=== PATIENT | male | born 1985 | race Caucasian/White ===

== ENCOUNTER 2017-05-17 11:09 | Emergency (ER) | payer MEDICAID, SELFPAY ==
[2017-05-17 11:21] VITALS: BP 125/77; PULSE 85; RESP 20; TEMP 37.3; O2SAT 97; BMI 31.6
--- NOTE | 2017-05-17 11:24 | XR_ITS ---
XR chest 2V HISTORY: ITS.REASON: COUGH ORDERING PHYSICIAN: Dyana Magana PATIENT AGE: 31 years COMPARISON: None available FINDINGS: The cardiomediastinal silhouette and pulmonary vascularity are within normal limits. The lungs are clear without infiltrates, suspicious nodules, or pleural effusions. No acute bony abnormalities. IMPRESSION: Negative chest, no acute finding
--- NOTE | 2017-05-17 11:52 | HMH.EDUTC ---
[facility] [place] Clinical Impression: Influenza Upper respiratory infection Qualifiers: URI type: unspecified URI Qualified Code(s): J06.9 - Acute upper respiratory infection, unspecified Disposition: Home, Self-Care Condition on Discharge: Good Instructions: Influenza, Sinusitis, DI for Sinusitis Additional Instructions: ? Start Tamiflu today if you are going to take it. Discussed risk and possible benefits. ?? Lots of rest ? Increase Fluids water, Gatorade, powerade, pedialyte,if infant/toddler/child ? Alternate Tylenol and / or ibuprofen as discussed for fever, aches, chills x 24 hours without medication for symptoms ? Follow up IMMEDIATELY for new or worsening Symptoms OR no noticeable improvement over the next 48-72 hours, 911 for difficulty or breathing ? You or your child area contagious until no fever, aches, chills for 24 hours with medication for symptoms Prescriptions: Oseltamivir Phosphate [Tamiflu 75mg Capsule] 75 mg PO BID #10 capsule Promethazine/Dextromethorphan [Promethazine-Dm Syrup] 5 ml PO Q4H PRN #200 syrup PRN Reason: Cough Referrals: Brad Chavira MD [Primary Care Provider] - Forms: Work/School Release Time of Disposition: 12:09 Medical Decision Making Vital Signs: 05/17/17 11:21 Temperature 99.2 F Temperature Source Oral Pulse Rate [Left Brachial] 85 Respiratory Rate 20 Blood Pressure [Left Arm] 125/77 Blood Pressure Mean [Left Arm] 93 Blood Pressure Source [Left Arm] Automatic Cuff Blood Pressure Position [Left Arm] Sitting 02 Sat by Pulse Oximetry 97 Oxygen Delivery Method Room Air - Lab Data Lab Results 05/17/17 11:58: Influenza Type A Ag Positive A, Influenza Type B Ag Negative - Greg Inquiry Pt receiving controlled substance: No Greg was queried for this patient: No - Reevaluation(s) Time: 12:02 (Although patient flu + patient has been having sinus pain and pressure now for about 3 weeks and has taken several over the counter medications to treat with no success Still having thick yellowish drainage therefore treatment with Rocephin injection was done for infection and treatment for the flu with Tamiflu) [facility] [place]PI - General Stated complaint: cough fever drainage body aches Mode of Arrival: Ambulatory Source of Information: Patient Limitations: No Limitations Description of Symptoms (Recalled from Triage Doc. by RN): C/O HEAD AND CHEST CONGESTION, COUGH, FEVER, CHILLS, BROWN EXPECTORANT X3 WEEKS HEENT Symptoms (Recalled from RN notes): Yes (HEAD CONGESTION) Resp Symptoms (Recalled from RN notes): Yes (COUGH, CHEST CONGESTION, BROWN EXPECTORANT) Skin Symptoms (Recalled from RN notes): No MS Symptoms (Recalled from RN notes): No Functional Status (Recalled from RN notes): N/A - History of Present Illness Provider Complaint: Patient state that she has been having cough and congestion along with fever on and off now for several weeks States that he is also having sinus pain and pressure along with drainage State that his girlfriend had flu a couple weeks ago and not sure if he may or may not have that just knows that he has taken several over the counter Medications but nothing has helped - Related Data Previous Rx's Medication Instructions Recorded Oseltamivir Phosphate [Tamiflu 75 mg PO BID #10 cap 05/17/17 75mg Capsule] Promethazine/Dextromethorphan 5 ml PO Q4H PRN #200 syrup 05/17/17 [Promethazine-Dm Syrup] Allergies Allergy/AdvReac Type Severity Reaction Status Date / Time No Known Allergies Allergy Unverified 04/25/17 14:47 - Worker's Comp Is this a Worker's Comp case?: No [facility] History I have reviewed the patient's past medical history: Yes - *Social History Smoking Status: Never smoker Alcohol Intake: current Alcohol Intake Frequency:: holidays/special occasions only Substance Use Type: unknown - Psychiatric History Expresses thoughts of harming self/others: None Suicide Plan Description: No Plan ROS Obtained: Yes
--- NOTE | 2017-05-17 11:56 | ED_ITS ---
[facility] [place] Dis[place] Clinical Impression: Influenza Upper respiratory infection Qualifiers: URI type: unspecified URI Qualified Code(s): J06.9 - Acute upper respiratory infection, unspecified Disposition: Home, Self-Care Condition on Discharge: Good Instructions: Influenza, Sinusitis, DI for Sinusitis Additional Instructions: ? Start Tamiflu today if you are going to take it. Discussed risk and possible benefits. ?? Lots of rest ? Increase Fluids water, Gatorade, powerade, pedialyte,if infant/toddler/child ? Alternate Tylenol and / or ibuprofen as discussed for fever, aches, chills x 24 hours without medication for symptoms ? Follow up IMMEDIATELY for new or worsening Symptoms OR no noticeable improvement over the next 48-72 hours, 911 for difficulty or breathing ? You or your child area contagious until no fever, aches, chills for 24 hours with medication for symptoms Prescriptions: Oseltamivir Phosphate [Tamiflu 75mg Capsule] 75 mg PO BID #10 capsule Promethazine/Dextromethorphan [Promethazine-Dm Syrup] 5 ml PO Q4H PRN #200 syrup PRN Reason: Cough Referrals: Brad Chavira MD [Primary Care Provider] - Forms: Work/School Release Time of Disposition: 12:09 Medical Decision Making Vital Signs: 05/17/17 11:21 Temperature 99.2 F Temperature Source Oral Pulse Rate [Left Brachial] 85 Respiratory Rate 20 Blood Pressure [Left Arm] 125/77 Blood Pressure Mean [Left Arm] 93 Blood Pressure Source [Left Arm] Automatic Cuff Blood Pressure Position [Left Arm] Sitting 02 Sat by Pulse Oximetry 97 Oxygen Delivery Method Room Air - Lab Data Lab Results 05/17/17 11:58: Influenza Type A Ag Positive A, Influenza Type B Ag Negative - Greg Inquiry Pt receiving controlled substance: No Greg was queried for this patient: No - Reevaluation(s) Time: 12:02 (Although patient flu + patient has been having sinus pain and pressure now for about 3 weeks and has taken several over the counter medications to treat with no success Still having thick yellowish drainage therefore treatment with Rocephin injection was done for infection and treatment for the flu with Tamiflu) [facility] [place] HPI - General Stated complaint: cough fever drainage body aches Mode of Arrival: Ambulatory Source of Information: Patient Limitations: No Limitations Description of Symptoms (Recalled from Triage Doc. by RN): C/O HEAD AND CHEST CONGESTION, COUGH, FEVER, CHILLS, BROWN EXPECTORANT X3 WEEKS HEENT Symptoms (Recalled from RN notes): Yes (HEAD CONGESTION) Resp Symptoms (Recalled from RN notes): Yes (COUGH, CHEST CONGESTION, BROWN EXPECTORANT) Skin Symptoms (Recalled from RN notes): No MS Symptoms (Recalled from RN notes): No Functional Status (Recalled from RN notes): N/A - History of Present Illness Provider Complaint: Patient state that she has been having cough and congestion along with fever on and off now for several weeks States that he is also having sinus pain and pressure along with drainage State that his girlfriend had flu a couple weeks ago and not sure if he may or may not have that just knows that he has taken several over the counter Medications but nothing has helped - Related Data Previous Rx's Medication Instructions Recorded Oseltamivir Phosphate [Tamiflu 75 mg PO BID #10 cap 05/17/17 75mg Capsule] Promethazine/Dextromethorphan 5 ml PO Q4H PRN #200 syrup 05/17/17 [Promethazine-Dm Syrup]
[2017-05-17 11:59] LABS: UTC Influenza A Antigen Positive (Negative); UTC Influenza B Antigen Negative (Negative)
== END 2017-05-17 12:24 | disposition home or self-care (01) ==
PROVIDERS: Emergency Provider Nurse Practitioner; PCP Internal Medicine Adolescent Medicine
DX: J10.1 Influenza due to other identified influenza virus with other respiratory manifestations (principal)
CPT/HCPCS: 71046; 87804; 96372; 99202

== ENCOUNTER 2023-06-05 16:01 | Emergency (ER) | payer OTHER, SELFPAY ==
[2023-06-05 16:40] VITALS: BP 133/80; PULSE 64; RESP 18; TEMP 37.1; O2SAT 99; BMI 24.5
--- NOTE | 2023-06-05 16:57 | ED_ITS ---
Discharge Plan Disposition Patient Disposition: Home, Self-Care Condition: Good Prescriptions Prescriptions: New ondansetron 4 mg tablet,disintegrating 4 mg PO Q8H PRN (Reason: nausea and vomiting) Qty: 12 0RF dextromethorphan polistirex [Delsym 12 hour] 30 mg/5 mL suspension,extended rel 12 hr 10 ml PO Q12H PRN (Reason: cough) Qty: 89 0RF No Action buprenorphine-naloxone 1 EACH tablet, sublingual 3 each SL DAILY methylprednisolone 4 MG tablets,dose pack 4 mg PO DIRECTED 6 Days Qty: 21 0RF xzdlvmdjxiofhsy-vlzpulbgn-LE 118 ML syrup 5 ml PO Q6HP PRN (Reason: Cough) Qty: 240 0RF amoxicillin-pot clavulanate 1 EACH tablet 1 tab PO Q12H 10 Days Qty: 20 0RF Referrals Follow up/Referrals: Provider,Referral, MD [Primary Care Provider] - See instructions Activity Restrictions/Add. Instructions Additional Instructions/Restrictions: * Too late to start Tamiflu. Most effective when started within 48 hours of symptoms onset * Lots of rest * Increase Fluids water, Gatorade, powerade, pedialyte,if infant/toddler/child * Alternate Tylenol and / or ibuprofen as discussed for fever, aches, chills Follow up IMMEDIATELY with your family doctor for new or worsening Symptoms OR no noticeable improvement over the next 48-72 hours, 911 for difficulty or breathing * You or your child area contagious until no fever, aches, chills for 24 hours with medication for symptoms * Help Prevent the spread of influenza: * ?Wash your hands often. Use soap and water. Wash your hands after you use the bathroom, change a child's diapers, or sneeze. Wash your hands before you prepare or eat food. Use gel hand cleanser that has 60% alcohol, when soap and water are not available. Do not touch your eyes, nose, or mouth unless you have washed your hands first. * Cover your mouth when you sneeze or cough. Cough into a tissue or the bend of your arm. If you use a tissue, throw it away immediately and wash your hands. * Clean shared items with a germ-killing white work cleaner. Clean table surfaces, doorknobs, and light switches. Do not share towels, silverware, and dishes with people who are sick. Wash bed sheets, towels, silverware, and dishes with soap and water. * Wear a mask over your mouth and nose if you are sick. The face mask may help protect others from becoming infected with the flu. Wear the mask when in common areas of your home or if you seek care with a healthcare provider. * Stay away from others if you are sick. Stay at home until 24 hours after your fever and symptoms are gone. Clinical Impressions Clinical Impression: Influenza Stand Alone Forms Stand Alone Forms: Work/School Release Instructions Patient Instructions: DI for Influenza -- Adult, Influenza Discharge ED Provider: Dyana Magana [facility] [place] General Stated complaint: cough ba fever 102.9 diarrhea vomiting flu expos Mode of Arrival: Ambulatory Source of Information: Patient Limitations: No Limitations Time Seen by Provider: 06/05/23 16:58 Description of Symptoms (Recalled from Triage Doc. by RN): PATIENT C/O BODY ACHES, CHILLS, AND VOMITING X 3 DAYS. RECENTLY EXPOSED TO FLU HEENT Symptoms (Recalled from RN notes): No Resp Symptoms (Recalled from RN notes): No Skin Symptoms (Recalled from RN notes): No MS Symptoms (Recalled from RN notes): No Functional Status (Recalled from RN notes): WNL History of Present Illness Provider Complaint: Patient states that he started feeling bad on Monday but symptoms got worse on Monday States someone in his house has the flu right now and then he started having symptoms States that he has been having body aches, chills, N/V and feeling achy all over States today he was still feeling bad so he came in to get checked Related Data Home Medications Medication Instructions Recorded Confirmed buprenorphine 8 mg-naloxone 2 mg 3 each SL DAILY SUBSTANCE ABUSE 03/12/19 03/12/19 sublingual tablet Previous Rx's Medication Instructions Recorded amoxicillin 875 mg-potassium 1 tab PO Q12H 10 days #20 tabs 03/12/19 clavulanate 125 mg tablet mztofnpggnorpot-cfdkfrfddbvwdst-XC 5 ml PO Q6HP PRN Cough ##240 03/12/19 2 mg-30 mg-10 mg/5 mL oral syrup methylprednisolone 4 mg tablets in 4 mg PO DIRECTED 6 days ##21 03/12/19 a dose pack dextromethorphan polistirex 30 10 ml PO Q12H PRN cough #89 mL 06/05/23 mg/5 mL oral susp ext.release 12hr (Delsym 12 hour) ondansetron 4 mg disintegrating 4 mg PO Q8H PRN nausea and 06/05/23 tablet vomiting #12 tabs Allergies Allergy/AdvReac Type Severity Reaction Status Date / Time No Known Allergies Allergy Verified 06/19/18 15:21 Worker's Comp Is this a Worker's Comp case?: No [facility] Disclaimer: The information contained in this section may have been updated after the patient was seen, as this information can be updated by other users. Medical History (Updated 06/05/23 @ 17:03 by Dyana Magana APRN) No significant past medical history Social History Smoking Status: Never smoker alcohol intake: never substance use type: unknown current occupational status: employed Travel in the last 8 weeks: None ROS Obtained: Yes All systems reviewed & no additional complaints except as documented and Yes Systems reviewed as appropriate & no additional complaints except as documented Constitutional Constitutional: Reports system reviewed and no additional complaints, except as documented, Reports as per HPI, Reports body ache, Reports chills, Reports fever(s) and Reports headache(s) ENT Ears, Nose, Mouth, and Throat: Reports system reviewed and no additional complaints, except as documented, Reports as per HPI and Reports headache(s) Cardiovascular Cardiovascular: Reports system reviewed and no additional complaints, except as documented and Reports as per HPI Respiratory Respiratory: Reports system reviewed and no additional complaints, except as documented and Reports as per HPI Gastrointestinal Gastrointestingal: Reports system reviewed and no additional complaints, except as documented, as per HPI, nausea and vomiting Neurologic Neurologic: Reports headache(s) Physical Exam General General appearance: alert and in no apparent distress ENT ENT exam: Present mucous membranes moist Expanded ENT Exam Nose exam: Absent sinus tenderness Respiratory Respiratory exam: Present normal lung sounds bilaterally; Absent respiratory distress or wheezes Cardiovascular Cardiovascular exam: Present regular rate, normal rhythm and normal heart sounds Abdominal Exam Abdominal exam: Present soft and normal bowel sounds; Absent distention or tenderness Neurological Exam Neurological exam: Present alert, oriented X3 and normal gait Medical Decision Making Greg Inquiry Pt receiving controlled substance: No Greg was queried for this patient: No Vital Signs: 06/05/23 16:40 Temperature 98.7 F Temperature Source Oral Pulse Rate [Right Brachial] 64 Respiratory Rate 18 Blood Pressure [Right Arm] 133/80 Blood Pressure Mean [Right Arm] 97 Blood Pressure Source [Right Arm] Automatic Cuff Blood Pressure Position [Right Arm] Sitting 02 Sat by Pulse Oximetry 99 Oxygen Delivery Method Room Air Lab Data Lab results reviewed: Yes I reviewed the patient's lab results.
[2023-06-05 16:59] LABS: UTC Influenza A Antigen Positive (Negative); UTC Influenza B Antigen Negative (Negative)
[2023-06-05 17:01] VITALS: BP 133/80; PULSE 64; RESP 18; TEMP 37.1; O2SAT 99
== END 2023-06-05 17:10 | disposition home or self-care (01) ==
PROVIDERS: Emergency Provider Nurse Practitioner
DX: J10.1 Influenza due to other identified influenza virus with other respiratory manifestations (principal); R11.2 Nausea with vomiting, unspecified; R51.9 Headache, unspecified; R50.9 Fever, unspecified; R05.9 Cough, unspecified; M79.18 Myalgia, other site
CPT/HCPCS: 87804; 99204; 99212; G0463

== ENCOUNTER 2023-06-08 19:28 | Emergency (ER) | payer OTHER, SELFPAY ==
[2023-06-08 19:30] VITALS: BP 139/100; PULSE 56; RESP 16; TEMP 36.7; O2SAT 97; BMI 29.2
--- NOTE | 2023-06-08 19:43 | HMH.EDGENADL ---
Discharge Plan Disposition Patient Disposition: Home, Self-Care Prescriptions Prescriptions: New ondansetron 8 mg tablet,disintegrating 8 mg PO Q8H PRN (Reason: nausea and vomiting) 5 Days Qty: 10 0RF No Action buprenorphine-naloxone 1 EACH tablet, sublingual 3 each SL DAILY methylprednisolone 4 MG tablets,dose pack 4 mg PO DIRECTED 6 Days Qty: 21 0RF vvwhnalqbopvjtu-xdjrvevur-ZK 118 ML syrup 5 ml PO Q6HP PRN (Reason: Cough) Qty: 240 0RF amoxicillin-pot clavulanate 1 EACH tablet 1 tab PO Q12H 10 Days Qty: 20 0RF ondansetron 4 mg tablet,disintegrating 4 mg PO Q8H PRN (Reason: nausea and vomiting) Qty: 12 0RF dextromethorphan polistirex [Delsym 12 hour] 30 mg/5 mL suspension,extended rel 12 hr 10 ml PO Q12H PRN (Reason: cough) Qty: 89 0RF Referrals Follow up/Referrals: Provider,Referral, MD [Primary Care Provider] - See instructions Clinical Impressions Clinical Impression: Influenza, COVID-19 Instructions Patient Instructions: DI for Diarrhea and Traveler's Diarrhea -- Adult, DI for Diarrhea and Traveler's Diarrhea -- Child, DI for Nausea -- Adult, DI for Nausea -- Child Discharge ED Provider: Rodney Grove [facility] Adult HPI General Chief complaint: Nausea/Vomiting/Diarrhea Stated complaint: flu A -fever, body aches Time Seen by Provider: 06/08/23 19:34 Mode of Arrival: Ambulatory Source of Information: Patient Limitations: No Limitations Description of Symptoms (Recalled from ER Triage Doc. by RN): pt states tested for flu on monday. pt c/o vomitting and diarrhea History of Present Illness HPI narrative: 37-year-old male with recent diagnosis of COVID and flu presenting with multiple complaints. Patient is been vomiting and having diarrhea for the past few days. Has been on Zofran at home, ran out of that today. Also been taking Decadron daily. Has not been taking Tamiflu states he has been unable to keep anything down secondary to vomiting and loss of appetite. Nonbloody, nonbilious vomiting and nonbloody diarrhea. Related Data Home Medications Medication Instructions Recorded Confirmed buprenorphine 8 mg-naloxone 2 mg 3 each SL DAILY SUBSTANCE ABUSE 03/12/19 03/12/19 sublingual tablet Previous Rx's Medication Instructions Recorded amoxicillin 875 mg-potassium 1 tab PO Q12H 10 days #20 tabs 03/12/19 clavulanate 125 mg tablet epstzokvqhnyhon-liqdhgwhfngaksf-OY 5 ml PO Q6HP PRN Cough ##240 03/12/19 2 mg-30 mg-10 mg/5 mL oral syrup methylprednisolone 4 mg tablets in 4 mg PO DIRECTED 6 days ##21 03/12/19 a dose pack dextromethorphan polistirex 30 10 ml PO Q12H PRN cough #89 mL 06/05/23 mg/5 mL oral susp ext.release 12hr (Delsym 12 hour) ondansetron 4 mg disintegrating 4 mg PO Q8H PRN nausea and 06/05/23 tablet vomiting #12 tabs ondansetron 8 mg disintegrating 8 mg PO Q8H PRN nausea and 06/08/23 tablet vomiting 5 days #10 tabs Allergies Allergy/AdvReac Type Severity Reaction Status Date / Time No Known Allergies Allergy Verified 06/19/18 15:21 [facility] Disclaimer: The information contained in this section may have been updated after the patient was seen, as this information can be updated by other users. Medical History (Updated 06/08/23 @ 21:53 by Rodney Grove MD) No significant past medical history Social History Smoking Status: Heavy tobacco smoker tobacco type: smokeless tobacco alcohol intake: never substance use type: unknown current occupational status: employed Travel in the last 8 weeks: None ROS Obtained: Yes All systems reviewed & no additional complaints except as documented Physical Exam General General appearance: alert and in no apparent distress Head Head exam: atraumatic and normocephalic Eye Eye exam: Present normal appearance, PERRL and EOMI ENT ENT exam: Present mucous membranes moist Neck Neck exam: Present normal inspection, full ROM and trachea midline Respiratory Respiratory exam: Absent respiratory distress, wheezes, stridor, accessory muscle use or prolonged expiratory phase Cardiovascular Cardiovascular exam: Present normal rhythm Abdominal Exam Abdominal exam: Present soft; Absent distention, tenderness, guarding, rebound or rigidity Extremities Exam Extremities exam: Absent edema Neurological Exam Neurological exam: Present alert, oriented X3, CN II-XII intact and normal gait; Absent motor sensory deficit Skin Skin exam: Present warm and dry; Absent diaphoresis or erythema Medical Decision Making Medical Records Medical records reviewed: Yes I reviewed the patient's medical records. Greg Inquiry Pt receiving controlled substance: No Greg was queried for this patient: No Vital Signs: 06/08/23 19:30 Temperature 98.1 F Temperature Source Oral Pulse Rate [Right] 56 L Respiratory Rate 16 Blood Pressure [Right Arm] 139/100 H Blood Pressure Mean [Right Arm] 113 02 Sat by Pulse Oximetry 97 Orders (Tests/Meds): ED MEDICATIONS Discontinued Medications Generic Name Dose Route Start Last Admin Trade Name Freq PRN Reason Stop Dose Admin Diphenhydramine HCl 25 mg 06/08/23 19:42 06/08/23 20:37 Diphenhydramine 50mg/Ml Vial IV 06/08/23 19:43 25 mg ONCE ONE Administration Lactated Ringer's 1,000 mls @ 999 mls/hr 06/08/23 19:42 06/08/23 20:37 Lactated Ringer's 1000 Ml Bag IV 06/08/23 20:42 999 mls/hr .Q1H1M ONE Administration Ondansetron HCl 4 mg 06/08/23 19:42 06/08/23 20:37 Ondansetron 4mg/2ml Vial IV 06/08/23 19:43 4 mg ONCE ONE Administration Medical Decision Narrative: 37-year-old male presenting with viral symptoms after being diagnosed with COVID and flu. History was obtained via conversation with patient. On arrival, patient hemodynamically stable, alert, oriented x4, appropriate, GCS 15, moving all extremities spontaneously, pupils equal and reactive to light. Full physical exam performed and significant for very well-appearing male no acute distress. Saturating appropriately, nontachycardic, normotensive. Appears very well. Mucous membranes are not dry. Differential includes viral syndrome, dehydration. Patient was given fluids, Zofran, Decadron IV for symptomatic management and correction of underlying abnormalities. Workup considered, but patient very well-appearing and has known underlying etiology. On reevaluation, patient feeling better and ready to go. Because patient at baseline without signs or symptoms of clinical decompensation, deemed appropriate for discharge. Results were relayed to patient who voiced understanding and were agreeable to outpatient management and follow up. At the time of discharge the patient was hemodynamically stable, tolerating PO, and mobilizing appropriately. Critical Care Critical Care Time Critical Care Time: No
[2023-06-08] MEDS: ONDANSETRON 4MG/2ML VIAL 4 MG IV (20:37)
[2023-06-08] MEDS: LACTATED RINGERS 1000ML 1,000 ML 999 ML IV (20:37)
[2023-06-08] MEDS: diphenhydrAMINE 50MG/ML VIAL 25 MG IV (20:37)
--- NOTE | 2023-06-08 20:42 | PC.NURSE ---
contacted the boom conveyor operator to page social contact worker OB to Dr. Oates ext [phone]
[2023-06-08 21:58] VITALS: BP 139/69; PULSE 85; RESP 17; TEMP 36.8; O2SAT 97
== END 2023-06-08 21:58 | disposition home or self-care (01) ==
PROVIDERS: Emergency Provider Emergency Medicine
DX: U07.1 COVID-19 (principal); J10.2 Influenza due to other identified influenza virus with gastrointestinal manifestations; R11.2 Nausea with vomiting, unspecified; R19.7 Diarrhea, unspecified; F17.290 Nicotine dependence, other tobacco product, uncomplicated
CPT/HCPCS: 96361; 96374; 96375; 99284; J2405

== ENCOUNTER 2024-01-19 10:19 | Outpatient (CLI) | payer OTHER, SELFPAY ==
[2024-01-19 10:59] LABS: Basophils % 0.7 % (0.1-2.0); Eosinophils # 0.1 K/mm3 (0.0-0.4); Eosinophils % 2.2 % (0.1-12.0); Hematocrit 39.3 % (42.0-52.0); Hemoglobin 12.4 g/dL (14.1-18.0); Lymphocytes # 1.5 K/mm3 (0.7-4.5); Lymphocytes % 39.1 % (10-50); Mean Corpuscular HGB Conc 31.6 g/dL (31.8-35.4); Mean Corpuscular Hemoglobin 27.8 pg (27.0-31.2); Mean Corpuscular Volume 87.9 fl (80-94); Mean Platelet Volume 8.1 fl (7.4-10.4); Monocytes # 0.3 K/mm3 (0.1-1.0); Monocytes % 6.4 % (1.7-9.3); Neutrophils # 2.1 K/mm3 (1.8-7.8); Neutrophils % 51.7 % (37.0-80.0); Platelet Count 248 K/mm3 (142-424); Red Blood Count 4.47 M/mm3 (4.60-6.20)
[2024-01-19 11:07] LABS: Barbiturates Screen,Urine Negative ng/ml (<200); Benzodiazepines Screen,Urine Negative ng/ml (<200)
[2024-01-19 11:08] LABS: Amphetamine/Metha Screen,Urine Negative ng/ml (<1000)
[2024-01-19 11:09] LABS: Cannabinoid Screen,Urine Negative ng/ml (<50); Cocaine Screen,Urine Negative ng/ml (<300)
[2024-01-19 11:10] LABS: Methadone Screen,Urine Negative ng/ml (<300)
[2024-01-19 11:11] LABS: Opiate Screen,Urine Negative ng/ml (<300); Phencyclidine Screen,Urine Negative ng/ml (<25)
[2024-01-19 11:45] LABS: Alanine Aminotransferase 63 U/L (12-78); Albumin Level 3.8 g/dl (3.5-5.0); Albumin/Globulin Ratio 1.2 (1.1-1.8); Alkaline Phosphatase 68 U/L (38-126); Aspartate Amino Transferase 49 U/L (17-59); Bilirubin,Total 0.4 mg/dl (0.2-1.3); Blood Urea Nitrogen 21 mg/dl (9-20); Calcium 9.3 mg/dl (8.4-10.2); Carbon Dioxide 33 mmol/L (22.0-30.0); Chloride 104 mmol/L (98-107); Estimated Glomerular Filt Rate 68 ml/min (>60); GFR (African American) 82 ML/MIN (>60); Globulin 3.1 g/dL (1.3-3.2); Glucose 93 mg/dl (74-100); Sodium 139 mmol/L (136-145); Total Protein,Serum 6.9 g/dl (6.3-8.2)
[2024-01-19 16:40] LABS: HIV (1&2) Antibody Rapid NONREACTIVE (NONREACTIVE)
[2024-01-20 05:26] LABS: Hep A Ab, Total Positive (Negative); Hepatitis B Surf Ab Quant 17.4 mIU/mL (Immunity>10)
[2024-01-20 13:38] LABS: Rapid Plasma Reagin Ab Titer Non Reactive titer (NonRea<1:1)
[2024-01-22 13:12] LABS: HBsAg Screen Negative (Negative); HCV Ab Reactive (Non Reactive); Hep A Ab, IGM Negative (Negative); Hep B Core Ab, IgM Negative (Negative)
[2024-01-22 14:10] LABS: QuantiFERON-TB Gold Plus Negative (Negative)
== END 2024-01-19 23:59 | disposition home or self-care (01) ==
LOC: LAB 10:28
DX: F11.20 Opioid dependence, uncomplicated (principal)
CPT/HCPCS: 36415; 80053; 80074; 80307; 85025; 86480; 86593; 86706; 86708; 86803; 87389

== ENCOUNTER 2024-05-17 10:48 | Outpatient (CLI) | payer OTHER, SELFPAY ==
[2024-05-22 10:43] LABS: 6-Acetylmorphine NEGATIVE; Barbiturates NEGATIVE; Benzodiazepines NEGATIVE; Buprenorphine POSITIVE; Cocaine Metabolite NEGATIVE; Fentanyl NEGATIVE; Gabapentin NEGATIVE; Marijuana MTB (THC) NEGATIVE; Nitrites NEGATIVE; Opiates NEGATIVE; Phencyclidine NEGATIVE; Propoxyphene NEGATIVE; Tapentadol NEGATIVE; Tramadol NEGATIVE
[2024-05-22 10:44] LABS: Amphetamines NEGATIVE; Buprenorphine 24 ng/mg; Carisoprodol NEGATIVE; Ethanol Biomarkers NEGATIVE; Methadone NEGATIVE; Norbuprenorphine 96 ng/mg
[2024-05-22 10:45] LABS: Naloxone 33 ng/mg
== END 2024-05-17 23:59 | disposition home or self-care (01) ==
PROVIDERS: Visit Provider Nurse Practitioner Family
DX: F19.99 Other psychoactive substance use, unspecified with unspecified psychoactive substance-induced disorder (principal)
CPT/HCPCS: 80307

== ENCOUNTER 2024-05-17 11:03 | Emergency (ER) | payer OTHER, SELFPAY ==
[2024-05-17 11:25] VITALS: BP 132/77; PULSE 71; RESP 19; TEMP 37.1; O2SAT 97; BMI 26.6
--- NOTE | 2024-05-17 11:31 | EXP.UTC ---
Discharge Plan Disposition Patient Disposition: Home, Self-Care Condition: Good Prescriptions Prescriptions: New methylprednisolone 4 mg Tablets,Dose Pack 4 mg PO DIRECTED 6 Days Qty: 21 0RF Rx Instructions: Take 1 pack as directed for 6 days tzljuqqycsrearu-syrjseklb-ZA [Bromfed DM] 2-30-10 mg/5 mL Syrup 5 ml PO Q6H PRN (Reason: Cough) Qty: 240 0RF amoxicillin-pot clavulanate 875-125 mg Tablet 1 tab PO Q12H Qty: 20 0RF No Action buprenorphine-naloxone 8-2 mg tablet, sublingual 1 tab SUBLINGUAL DAILY Referrals Follow up/Referrals: Provider,Referral, MD [Primary Care Provider] - See instructions Activity Restrictions/Add. Instructions Additional Instructions/Restrictions: Drink plenty of fluids. Take tylenol or ibuprofen for pain or fever. Take the medications as directed. Follow up with your regular doctor. GO TO THE ER FOR ANY WORSENING SYMPTOMS Clinical Impressions Clinical Impression: Sinusitis Pharyngitis Qualifiers: Pharyngitis/tonsillitis etiology: unspecified etiology Qualified Code(s): J02.9 - Acute pharyngitis, unspecified Instructions Patient Instructions: Sinusitis, DI for Sinusitis Print Language Print Language: Occitan Discharge ED Provider: Thomas oBsch [facility] General Stated complaint: cough, headache and congetsion Time Seen by Provider: 05/17/24 11:30 History of Present Illness Provider Complaint: He states that for the past 3 days he has had worsening chest congestion, sinus congestion, nonproductive cough, sore throat and malaise. Related Data Home Medications ?Medication ?Instructions ?Recorded ?Confirmed buprenorphine 8 mg-naloxone 2 mg 1 tab sublingual DAILY 05/17/24 05/17/24 sublingual tablet Previous Rx's ?Medication ?Instructions ?Recorded amoxicillin 875 mg-potassium 1 tab PO Q12H #20 tabs 05/17/24 clavulanate 125 mg tablet gmnxbjhvislxbum-ltoiplstndnxgik-BU 5 ml PO Q6H PRN Cough #240 mL 05/17/24 2 mg-30 mg-10 mg/5 mL oral syrup (Bromfed DM) methylprednisolone 4 mg tablets in 4 mg PO DIRECTED 6 days #21 tabs 05/17/24 a dose pack Allergies Allergy/AdvReac Type Severity Reaction Status Date / Time No Known Allergies Allergy Verified 06/19/18 15:21 [facility] Disclaimer: The information contained in this section may have been updated after the patient was seen, as this information can be updated by other users. Medical History (Updated 05/17/24 @ 12:07 by Thomas Bosch APRN) No significant past medical history Social History Smoking Status: Heavy tobacco smoker tobacco type: smokeless tobacco alcohol intake: never substance use type: unknown current occupational status: employed Travel in the last 8 weeks: None Have you lived/traveled outside [place] in past 30 days?: No Contact w/someone who lives/traveled outside [place] past 30 days?: No Exposure to someone with infectious disease in past 14 days?: No Do you have a fever (greater than 100.4 F or 38 C)?: No Have you tested positive for COVID-19: No Exposed to someone with COVID-19 in past 14 days?: No Do you have a sore throat?: No Do you have a cough?: No Do you have any weakness?: No Do you have any diarrhea?: No Are you experiencing any unusual bleeding?: No Do you have any muscle aches/pain?: No Do you have any abdominal pain?: No Are you experiencing loss of taste or smell?: No ROS Obtained: Yes All systems reviewed & no additional complaints except as documented Constitutional Constitutional: Reports chills and Reports fever(s) Eyes Eyes: Denies eye discharge ENT Ears, Nose, Mouth, and Throat: Reports as per HPI Cardiovascular Cardiovascular: Denies chest pain Respiratory Respiratory: Denies chest congestion and Reports cough Gastrointestinal Gastrointestingal: Reports nausea; Denies abdominal pain, constipation, cramping, diarrhea or vomiting Musculoskeletal Musculoskeletal: Denies arthralgias Integumentary/Breasts Skin/Breast: Denies rash Neurologic Neurologic: Denies paresthesias Physical Exam General General appearance: alert and in no apparent distress Head Head exam: atraumatic, normocephalic and normal inspection Eye Eye exam: Present normal appearance, PERRL and EOMI ENT ENT exam: Present mucous membranes moist and normal external ear exam Expanded ENT Exam TM/Canal exam: Bilateral TM: erythema and bulging Nose exam: Absent sinus tenderness Mouth exam: Present normal external inspection; Absent drooling Teeth exam: Present normal inspection Throat exam: Present tonsillar erythema, tonsillomegaly and tonsillar exudate Neck Neck exam: Present normal inspection, full ROM and trachea midline; Absent tenderness, meningismus or lymphadenopathy Chest Chest inspection: Present normal inspection and symmetric chest wall rise; Absent tenderness Respiratory Respiratory exam: Present normal lung sounds bilaterally; Absent respiratory distress, wheezes, stridor or accessory muscle use Cardiovascular Cardiovascular exam: Present regular rate and normal rhythm; Absent systolic murmur or diastolic murmur Abdominal Exam Abdominal exam: Present soft and normal bowel sounds; Absent distention, tenderness, guarding, rebound or rigidity Extremities Exam Extremities exam: Present normal inspection and normal capillary refill; Absent calf tenderness Back Exam Back exam: Present normal inspection and full ROM; Absent tenderness, CVA tenderness (R) or CVA tenderness (L) Neurological Exam Neurological exam: Present alert, oriented X3 and CN II-XII intact Psychiatric Psychiatric exam: Present normal affect and normal mood Skin Skin exam: Present warm, dry, intact and normal color Medical Decision Making Medical Records Medical records reviewed: No I reviewed the patient's medical records. Screening: Per USPSTF and CDC recommendations, given the prevalence of disease in our region, it is our hospital?s policy to screen for HIV and viral Hepatitis for all patients aged 18 and over and those with ongoing risk factors. Greg Inquiry Pt receiving controlled substance: No Lab Data Lab results reviewed: Yes I reviewed the patient's lab results.
[2024-05-17 12:05] VITALS: BP 132/77; PULSE 71; RESP 19; TEMP 37.1; O2SAT 97
== END 2024-05-17 12:09 | disposition home or self-care (01) ==
PROVIDERS: Emergency Provider Nurse Practitioner Family
DX: J32.9 Chronic sinusitis, unspecified (principal); J02.9 Acute pharyngitis, unspecified
CPT/HCPCS: 99213; G0381

== ENCOUNTER 2024-09-05 10:37 | Outpatient (CLI) | payer OTHER, SELFPAY ==
[2024-09-05 11:24] LABS: Basophils % 0.4 % (0.1-2.0); Eosinophils # 0.1 Kmm3 (0.0-0.4); Eosinophils % 2.2 % (0.1-12.0); Hematocrit 38.4 % (42.0-52.0); Hemoglobin 12.8 g/dL (14.1-18.0); Lymphocytes # 1.6 K/mm3 (0.7-4.5); Lymphocytes % 32.3 % (10-50); Mean Corpuscular HGB Conc 33.3 g/dL (31.8-35.4); Mean Corpuscular Hemoglobin 27.6 pg (27.0-31.2); Mean Corpuscular Volume 82.8 fl (80-94); Mean Platelet Volume 9.3 fl (7.4-10.4); Monocytes # 0.4 K/mm3 (0.1-1.0); Neutrophils # 2.7 K/mm3 (1.8-7.8); Neutrophils % 55.9 % (37.0-80.0); Nucleated Red Blood Cells # 0 10^3/uL; Nucleated Red Blood Cells % 0 %; Platelet Count 189 K/mm3 (142-424); Red Blood Count 4.64 M/mm3 (4.60-6.20); Red Cell Distribution Width 12.1 % (11.5-17.5); Red Cell Distribution Width-SD 36.8 fL; White Blood Count 4.9 K/mm3 (4.8-10.8)
[2024-09-05 11:37] LABS: Amphetamine/Metha Screen,Urine Negative ng/ml (<1000); Barbiturates Screen,Urine Negative ng/ml (<200)
[2024-09-05 11:38] LABS: Benzodiazepines Screen,Urine Negative ng/ml (<200); Cannabinoid Screen,Urine Negative ng/ml (<50)
[2024-09-05 11:39] LABS: Cocaine Screen,Urine Negative ng/ml (<300)
[2024-09-05 11:40] LABS: Methadone Screen,Urine Negative ng/ml (<300); Opiate Screen,Urine Negative ng/ml (<300)
[2024-09-05 11:41] LABS: Phencyclidine Screen,Urine Negative ng/ml (<25)
[2024-09-05 12:38] LABS: Alanine Aminotransferase 60 U/L (12-78); Alkaline Phosphatase 67 U/L (38-126); Anion Gap 7.1 mEq/L (5-15); Aspartate Amino Transferase 47 U/L (17-59); Bilirubin,Direct 0.1 mg/dl (0.0-0.4); Bilirubin,Indirect 0.5 mg/dL (0.0-0.9); Bilirubin,Total 0.6 mg/dl (0.2-1.3); Bilirubin,Unconjugated 0.5 mg/dL (0.0-1.1); Carbon Dioxide 30 mmol/L (22.0-30.0); Chloride 105 mmol/L (98-107); Potassium 4.1 mmoL/L (3.5-5.1); Sodium 138 mmol/L (136-145)
[2024-09-05 12:40] LABS: Albumin Level 4.7 g/dl (3.5-5.0); Blood Urea Nitrogen 19 mg/dl (9-20); Calcium 9.5 mg/dl (8.4-10.2); Estimated Glomerular Filt Rate 84 ml/min (>60); GFR (African American) 101 ML/MIN (>60); Glucose 56 mg/dl (74-100); Total Protein,Serum 7.1 g/dl (6.3-8.2)
[2024-09-05 13:13] LABS: HIV Combo NEGATIVE (Negative)
[2024-09-06 06:51] LABS: RPR W/RFX Titers Nonreactive (Nonreactive)
[2024-09-06 08:17] LABS: Hep A Ab, Total Positive (Negative); Hepatitis B Surf Ab Quant 14.5 mIU/mL (Immunity>10)
[2024-09-07 20:24] LABS: QuantiFERON-TB Gold Plus Negative (Negative)
[2024-09-08 21:23] LABS: HBsAg Screen Negative (Negative); HCV Ab Reactive (Non Reactive); Hep A Ab, IGM Negative (Negative); Hep B Core Ab, IgM Negative (Negative)
[2024-09-08 22:14] LABS: Hepatitis C Genotype 1a (.)
[2024-09-09 16:12] LABS: Mycoplasma genitalium, NAA Negative (Negative); Neisseria gonorrhoeae, NAA Negative (Negative); Trich vag by NAA Negative (Negative)
== END 2024-09-05 23:59 | disposition home or self-care (01) ==
LOC: LAB 10:39
PROVIDERS: Visit Provider Nurse Practitioner Family
DX: Z20.2 Contact with and (suspected) exposure to infections with a predominantly sexual mode of transmission (principal); Z20.5 Contact with and (suspected) exposure to viral hepatitis; Z91.89 Other specified personal risk factors, not elsewhere classified; F19.99 Other psychoactive substance use, unspecified with unspecified psychoactive substance-induced disorder
CPT/HCPCS: 36415; 80048; 80074; 80076; 80307; 85025; 86480; 86592; 86706; 86708; 86803; 87389; 87491; 87522; 87563; 87591; 87661; 87902